=== PATIENT | female | born 1960 | race African-American/Black ===

== ENCOUNTER 2017-05-23 05:19 | Emergency (ER) | payer SELFPAY ==
[~2017-05-23] VITALS: Ht 170.2 cm; Wt 114.8 kg
[2017-05-23 06:47] LABS: BASOPHIL % 0.8 % (0-2); PLATELET COUNT 345 x10^3mcL (130-400); RED CELL DISTRIBUTION WIDTH 14.4 % (11.5-14.5)
[2017-05-23 06:58] LABS: CALCIUM 8.7 mg/dL (8.5-10.1); CARBON DIOXIDE 27.1 mmol/L (21-32); CHLORIDE SERUM 107 mmol/L (98-107); CREATININE SERUM 0.9 mg/dL (0.6-1.0); GFR1 > 60 mL/min; GLUCOSE SERUM 123 mg/dL (74-106); POTASSIUM SERUM 3.3 mmol/L (3.5-5.1); SODIUM SERUM 144 mmol/L (136-145)
[2017-05-23 07:11] LABS: ALBUMIN 3.6 g/dL (3.4-5.0); ALKALINE PHOSPHATASE 89 U/L (46-116); ALT/SGPT 21 U/L (14-59); AMYLASE 35 U/L (25-115); AST/SGOT 12 U/L (15-37); BILIRUBIN TOTAL 0.8 mg/dL (0.20-1.00); LIPASE 132 IU/L (73-393); T4(THYROXINE) 11.5 ug/dL (4.7-13.3)
[2017-05-23 07:16] LABS: TOTAL PROTEIN, SERUM 8.6 g/dL (6.4-8.2)
[2017-05-23 08:01] LABS: microscopic required? YES; urine erythrocyte 2+ (NEGATIVE)
[2017-05-23 08:24] VITALS: BP 148/84
== END 2017-05-23 08:24 | disposition home or self-care (01) ==
LOC: ED 05:19
PROVIDERS: Emergency Medicine
DX: N39.0 Urinary tract infection, site not specified (principal); K58.8 Other irritable bowel syndrome
CPT/HCPCS: 36415; 83880